=== PATIENT | male | born 1955 | race Caucasian/White ===

== ENCOUNTER → 2020-07-11 | Outpatient (CLI) | payer MEDICARE, OTHER ==
[~2020-07-11] MED LIST: ATORVASTATIN CA20 MG PO; BUMETANIDE1 MG PO; COLCRYS0.6 MG PO; ELIQUIS5 MG PO; ENTRESTO 97 MG1 EACH PO; FEBUXOSTAT40 MG PO; NEURONTIN300 MG PO; ROXICODONE TAB 55 MG GT; SPIRONOLACTONE25 MG PO; ST. JOSEPH ASPI81 M1 PO; TOPROL XL100 MG PO; ZOFRAN4 MG PO
== END ==
LOC: RAD 09:00
PROC: BP0 Imaging, Non-Axial Upper Bones, Plain Radiography (ICD-10-PCS; principal; 2020-07-11)
DX: M75.122 Complete rotator cuff tear or rupture of left shoulder, not specified as traumatic (principal)
CPT/HCPCS: 36415; 73040; 73201; Q9962

== ENCOUNTER 2020-07-14 19:06 | Emergency (ER) | payer MEDICARE, OTHER ==
[2020-07-14 20:20] LABS: HEMOGLOBIN 15.6 gm/dl (14.0-17.5); RED BLOOD COUNT 5.2 M/UL (4.20-5.50)
[2020-07-14] MEDS ORDERED: COLCRYS0.6 MG PO (21:22)
== END 2020-07-14 21:45 | disposition home or self-care (01) ==
LOC: ER1 19:06
PROVIDERS: Emergency Medicine
DX: M25.572 Pain in left ankle and joints of left foot (principal); Z95.0 Presence of cardiac pacemaker; Z95.5 Presence of coronary angioplasty implant and graft; Z79.01 Long term (current) use of anticoagulants
CPT/HCPCS: 73610; 84550; 85025; 99283

== ENCOUNTER 2020-08-24 05:53 | Inpatient (IN) | payer MEDICARE, OTHER ==
[~2020-08-24] VITALS: Ht 177.8 cm; Wt 124.7 kg
[~2020-08-24 05:53] MED LIST changes: -ATORVASTATIN CA20 MG PO; -BUMETANIDE1 MG PO; -ELIQUIS5 MG PO; -ENTRESTO 97 MG1 EACH PO; -FEBUXOSTAT40 MG PO; -NEURONTIN300 MG PO; -ROXICODONE TAB 55 MG GT; -SPIRONOLACTONE25 MG PO; -ST. JOSEPH ASPI81 M1 PO; -TOPROL XL100 MG PO; -ZOFRAN4 MG PO
[2020-08-24] MEDS ORDERED: ELIQUIS5 MG PO (06:28)
[2020-08-24] MEDS ORDERED: SPIRONOLACTONE25 MG PO (06:29)
[2020-08-24] MEDS ORDERED: ATORVASTATIN CA20 MG PO (06:29)
[2020-08-24] MEDS ORDERED: TOPROL XL100 MG PO (06:30)
[2020-08-24] MEDS ORDERED: BUMETANIDE1 MG PO (06:30)
[2020-08-24] MEDS ORDERED: ST. JOSEPH ASPI81 M1 PO (06:31)
[2020-08-24] MEDS ORDERED: ENTRESTO 97 MG1 EACH PO (06:31)
[2020-08-24] MEDS ORDERED: FEBUXOSTAT40 MG PO (06:31)
[2020-08-24 06:44] LABS: HEMOGLOBIN 16.4 gm/dl (14.0-17.5); RED BLOOD COUNT 5.25 M/UL (4.20-5.50); WHITE BLOOD COUNT 8.3 K/UL (4.5-11.0)
[2020-08-24 07:03] LABS: BUN/CREATININE RATIO 14 (0-10)
[2020-08-25 03:34] LABS: HEMOGLOBIN 13.5 gm/dl (14.0-17.5); RED BLOOD COUNT 4.4 M/UL (4.20-5.50); WHITE BLOOD COUNT 10.6 K/UL (4.5-11.0)
[2020-08-25 03:38] LABS: BUN/CREATININE RATIO 22 (0-10)
[2020-08-25] MEDS ORDERED: ZOFRAN4 MG PO (08:19)
[2020-08-25] MEDS ORDERED: NEURONTIN300 MG PO (08:19)
[2020-08-25] MEDS ORDERED: ROXICODONE TAB 55 MG GT (08:19)
== END 2020-08-25 13:07 | disposition home or self-care (01) | DRG 483 ==
LOC: OR 05:53 → PROG CARE 05:54 → OR 07:30 → PROG CARE 15:35 → OR 08-25 13:07 → PROG CARE 08-25 13:07
PROVIDERS: ADMIT Orthopaedic Surgery
PROC: 0RRK00Z Replacement of Left Shoulder Joint with Reverse Ball and Socket Synthetic Substitute, Open Approach (ICD-10-PCS; principal; 2020-08-24 07:30)
DX: S46.012A Strain of muscle(s) and tendon(s) of the rotator cuff of left shoulder, initial encounter (principal); I11.0 Hypertensive heart disease with heart failure; I50.9 Heart failure, unspecified; E78.5 Hyperlipidemia, unspecified; I48.91 Unspecified atrial fibrillation; G47.30 Sleep apnea, unspecified; I25.10 Atherosclerotic heart disease of native coronary artery without angina pectoris; W19.XXXA Unspecified fall, initial encounter; G89.18 Other acute postprocedural pain; E03.9 Hypothyroidism, unspecified; Z79.899 Other long term (current) drug therapy; Z79.01 Long term (current) use of anticoagulants; Z95.810 Presence of automatic (implantable) cardiac defibrillator; Z95.5 Presence of coronary angioplasty implant and graft; Z90.49 Acquired absence of other specified parts of digestive tract; I25.2 Old myocardial infarction; Z87.891 Personal history of nicotine dependence
CPT/HCPCS: 36415; 71045; 73020; 80048; 85025; 93005; 97161; C1713; C1776; J0171; J0690; J1100; J1170; J2250; J2795; J7040; J7120

== ENCOUNTER → 2022-03-20 | Outpatient (CLI) | payer MEDICARE ==
[~2022-03-20] MED LIST changes: +ATORVASTATIN CA20 MG PO; +BUMETANIDE1 MG PO; +ELIQUIS5 MG PO; +ENTRESTO 97 MG1 EACH PO; +FEBUXOSTAT40 MG PO; +NEURONTIN300 MG PO; +ROXICODONE TAB 55 MG GT; +SPIRONOLACTONE25 MG PO; +ST. JOSEPH ASPI81 M1 PO; +TOPROL XL100 MG PO; +ZOFRAN4 MG PO
== END ==
LOC: OPSV 14:00
DX: D45 Polycythemia vera (principal)
CPT/HCPCS: 99195